=== PATIENT | male | born 1955 | race Caucasian/White ===

== ENCOUNTER 2018-12-01 09:42 | Emergency (ER) | payer OTHER ==
[2018-12-01] MEDS ORDERED: ALBUTEROL 3 ML DEYVIAL IH ONE (10:19)
[2018-12-01] MEDS ORDERED: NS 1,000 ML IV ONE ×2 (10:19→11:47)
--- NOTE | 2018-12-01 10:29 | EDPHY ---
General - History Smoking Status: Never smoked Time Seen by Provider: 12/01/18 09:57 Narrative: CLINICAL IMPRESSION: Influenza, Bronchitis, Sinusitis ASSESSMENT/PLAN: 63-year-old male presents to the emergency department with 6 days of URI symptom, cough with worsening shortness of breath and productive cough making it difficult for him to sleep at night. No underlying cardiopulmonary disease. Patient arrives with stable vital signs, afebrile, no tachycardia or hypoxia. Chest x-ray shows no evidence of pneumonia. Labs reassuring, no leukocytosis , renal insufficiency, electrolyte imbalance. Lactate normal. Patient received 2 L IV fluids, albuterol nebulizer. Influenza positive however given that he has been symptomatic for 6 days Tamiflu was declined. 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 He was given Augmentin and an albuterol inhaler. I advised PCP follow-up. Vicodin provided for back pain and cough suppression. Warning signs return to ED sooner outlined in person and discharge papers. DIFFERENTIAL DX: Differential includes but not limited to pneumonia, bronchitis, sepsis, severe dehydration, electrolyte imbalance ED PROCEDURES: See lab and/or imaging results below ED COURSE: 10:20 a.m.: Patient seen and assessed by myself. Vital signs stable, no hypoxia or hypotension. No tachycardia. No complaints of chest pain. Plan for IV, lactate, labs, IV fluid bolus, chest x-ray and albuterol treatment 12:00 p.m.: Patient reassessed, feeling better, feeling tired. Labs reassuring. Lactate normal normal leukocytosis, signs remained stable, no hypoxia. Chest x-ray final radiology read pending, no clinical sign of pneumonia. Into discharge patient with antibiotics, albuterol, Vicodin. CHIEF COMPLAINT: Cough and fever HPI: 63-year-old male with a past medical history of hypercholesterolemia and spondylolisthesis presents to the emergency department with 6 days of illness. Patient reports he traveled to [place] 6 days ago and acquired a 24 hr horrible GI bug including vomiting, diarrhea and subjective fever and chills. Upon returning home he then developed cough with URI symptoms that has been getting progressively worse. He reports feeling very short of breath, not able to sleep, and having productive cough. Fevers as high as 102 at home. No underlying cardiopulmonary disease. No complaints of chest pain or pleuritic discomfort. No asymmetric leg swelling or calf pain. They went to a nurse practitioner this morning and was told his blood pressure was 80/40 although upon arrival to the ED he has a normal blood pressure. He does not wear oxygen. He has not been using anything for symptoms aside from over-the- counter treatments. He did not get a flu shot this year. He works as a fitness coach in college athletics and has coached for this [employer] in the past as well as or again. PAST MEDICAL HISTORY: Hypercholesterolemia, spondylolisthesis See nurse/triage notes for additional history if applicable Pertinent Past Surgical History: None reported Family History: Noncontributory Social History: Works as a fitness coach for [employer] and or again, nonsmoker, , here with his REVIEW OF SYSTEMS: All other systems negative Constitutional: Positive for fever, chills and appetite change. Eyes: No discharge, vision change ENT: No sore throat, positive for congestion, ear pain. Cardiovascular: No chest pain, no palpitations. Respiratory: Positive for cough and shortness of breath. Gastrointestinal: No abdominal pain, no vomiting, diarrhea. Genitourinary: No hematuria, dysuria, flank pain, pelvic pain Musculoskeletal: Positive for back pain, joint swelling, joint pain, myalgias. Skin: No rashes, color change. Neurological: No headache, dizziness, positive for weakness. PHYSICAL EXAM: General Appearance: Alert, oriented, appropriate, cooperative, appears ill, appears very fatigued, non-toxic appearing, VSS, no hypoxia. HEENT: TMs are clear bilaterally no perforation or FB, no injection, no evidence of serous or mucopurulent otitis. Oropharynx clear is no erythema or exudates, no tonsillar hypertrophy or asymmetry. Dentition without abnormality. Eyes: PERRLA, no acute vision change, nystagmus, swelling, discharge, pain or photosensitivity. Conjunctiva pink, no pallor or injection Neck: Supple, nontender, no lymphadenopathy, no midline pain, FROM, no meningismus. Respiratory: Diminished breath sounds throughout, wheezing and crackles noted to bilateral lower lobes, productive cough noted] Cardiac: Regular rate and rhythm, no murmurs or gallops. Gastrointestinal: Abdomen is soft, nontender, bowel sounds normal, no masses/ hernia, no rigidity, guarding or focal peritoneal findings. Neurological: [ Alert and oriented x 3, CN 2-12 grossly intact Skin: Warm, dry, no rashes, no nodules on palpation. Musculoskeletal: Extremities are symmetrical, full range of motion, no tenderness, deformity, swelling, or erythema. No asymmetric lower extremity or calf pain or swelling MEDICAL DECISION MAKING: Patient was seen independently. Secondary supervising physician at time of evaluation was Dr. Peña . Diagnosis: Influenza, bronchitis, sinusitis . New, requires workup Summary: See Assessment and Plan for summary of ED visit Clinical lab tests: ordered / reviewed. Independent visualization of images, tracing, or specimens: Yes. Decision to obtain medical records or history from someone other than the patient: Patient's Review / Summarize previous medical records: None available Discussed patient with another provider: No Patient Progress: Improved, stable for discharge. (Ernesto Ferreira) Discussion: The patient was evaluated and managed by the Physician Insurance Agent. My co- signature indicates that I have reviewed this chart and I agree with the findings and plan of care as documented. I am the secondary supervising physician. (Cecilia Peña) - Objective Vital Signs: Initial Vital Signs Temperature (C) 37.2 C 12/01/18 09:50 Heart Rate 77 12/01/18 09:50 Respiratory Rate 18 12/01/18 09:50 Blood Pressure 121/75 H 12/01/18 09:50 O2 Sat (%) 92 12/01/18 09:50 O2 Delivery Mode Room Air Allergies/Adverse Reactions: No Known Allergies Allergy (Unverified 12/01/18 09:49) Home Medications: Medication Instructions Recorded Acyclovir 12/01/18 Albuterol Hfa Anes Only [Proair 2 puffs IH QID #1 mdi 12/01/18 Hfa Icu (*)] Amoxicillin/Clavulanate Pot 875 mg PO BID #20 tab 12/01/18 [Augmentin 875 mg tab] Aspirin 81mg (*) 12/01/18 Hydrocodone/APAP 5/325 [Gould 1 - 2 tab PO Q4H PRN #10 tab 12/01/18 5/325 (*)] Zocor 12/01/18 Laboratory Results: Laboratory Results 12/01/18 10:30 12/01/18 10:30 Microbiology Results: MICROBIOLOGY 12/01/18 10:30 Nasal, Sinus - Swab Respiratory Panel (PCR) - Final Influenza Virus Type A H3 Medications Given: Discontinued Medications Albuterol (Proventil Neb) 3 ml IH EDNOW ONE Stop: 12/01/18 10:20 Last Admin: 12/01/18 10:29 Dose: 3 ml Sodium Chloride (Ns) 1,000 mls @ 0 mls/hr IV EDNOW ONE; Wide Open PRN Reason: Protocol Stop: 12/01/18 10:20 Last Admin: 12/01/18 10:29 Dose: 1,000 mls Sodium Chloride (Ns) 1,000 mls @ 0 mls/hr IV EDNOW ONE; Wide Open PRN Reason: Protocol Stop: 12/01/18 11:48 Last Admin: 12/01/18 11:51 Dose: 1,000 mls Departure - Departure Disposition: Home, Routine, Self-Care Clinical Impression: Sinusitis, Bronchitis Condition: Good Instructions: Sinusitis (ED), Acute Bronchitis (ED) Additional Instructions: DISCHARGE INSTRUCTIONS FROM YOUR DOCTOR Thank you for visiting our emergency department today. You were treated by a physician ophthalmic surgical assistant today and your case was reviewed with our ED Attending physician. Please keep in mind that discharge from the emergency department does not mean that there is nothing wrong - it simply means that we have not identified an emergency condition that requires further evaluation or treatment in the hospital. You should always plan to follow up with primary care for re- evaluation of your condition in the next 2-3 days. If you have been referred to a specialist, please call as soon as possible (today or tomorrow) to schedule your follow up appointment at the appropriate time. DIAGNOSTIC WORKUP IN THE EMERGENCY DEPARTMENT INCLUDED CHEST X-RAY, LAB WORK, IV FLUIDS, ALBUTEROL NEB TREATMENT. WORKUP IS REASSURING. NO ELEVATION IN WHITE BLOOD COUNT, NO SIGNS OF SEPSIS, ELECTROLYTES AND RENAL FUNCTION ARE NORMAL READ CHEST X-RAY WITHOUT OBVIOUS SIGNS OF PNEUMONIA. HOWEVER GIVEN FEVER AND PERSISTENT SYMPTOMS, AN ANTIBIOTIC WAS PRESCRIBED. PLEASE TAKE DIRECTED. PLEASE USE ALBUTEROL WITH SPACER EVERY 4 HR. TAKE VICODIN ONLY IF NEEDED. DO NOT DRIVE OR DRINK ALCOHOL WHILE TAKING NARCOTIC PAIN MEDICATION. PLEASE BE AWARE, NARCOTICS CAN CAUSE CONSTIPATION, LETHARGY, AND INCREASE YOUR RISK OF FALLING. DO NOT TAKE TYLENOL AT THE SAME TIME VICODIN OR PERCOCET. PLEASE FOLLOW-UP WITH A PRIMARY CARE DOCTOR IN THE NEXT 4-48 HOURS. RETURN TO ED FOR WORSENING SYMPTOMS, INCREASED SHORTNESS OF BREATH, ALTERED MENTAL STATUS , HIGH FEVERS, CHEST PAIN, WEAKNESS OR ANY OTHER CONCERN. People present with illnesses and injuries in different ways, and it is always possible that we have missed something. You may always return for re-evaluation if symptoms worsen or if they are not improving or if you develop new/different symptoms. Again, thank you for choosing our emergency department. We hope that you feel better. Referrals: Raquel Bal MD [Medical Doctor] - As per Instructions NONE *PRIMARY CARE P,. [Primary Care Provider] - 1-2 days without fail Prescriptions: Albuterol Hfa Anes Only [Proair Hfa Icu (*)] 2 puffs IH QID #1 mdi Amoxicillin/Clavulanate Pot [Augmentin 875 mg tab] 875 mg PO BID #20 tab Hydrocodone/APAP 5/325 [Gould 5/325 (*)] 1 - 2 tab PO Q4H PRN #10 tab PRN Reason: Pain, Moderate
[2018-12-01 10:38] LABS: PLATELET COUNT 233 10^3/uL (150-400)
[2018-12-01 12:16] VITALS: BP 115/78
== END 2018-12-01 12:17 | disposition home or self-care (01) ==
DX: J01.90 Acute sinusitis, unspecified (principal); J40 Bronchitis, not specified as acute or chronic; E86.9 Volume depletion, unspecified
CPT/HCPCS: J7613